=== PATIENT | female | born 1960 | race Caucasian/White ===

== ENCOUNTER 2020-01-10 16:15 | Outpatient (CLI) | payer OTHER | END 2020-01-10 16:20 | disposition home or self-care (01) | LOC: LAB 16:15 | PROVIDERS: ATTEND Physical Medicine & Rehabilitation | DX: Z20.828 Contact with and (suspected) exposure to other viral communicable diseases (principal); Z11.59 Encounter for screening for other viral diseases ==

== ENCOUNTER 2020-09-05 12:44 | Outpatient (CLI) | payer OTHER | END 2020-09-05 13:08 | disposition home or self-care (01) | LOC: MAMO-SONO 12:44 | DX: Z12.31 Encounter for screening mammogram for malignant neoplasm of breast (principal); N64.59 Other signs and symptoms in breast ==

== ENCOUNTER 2021-02-23 15:50 | Outpatient (CLI) | payer OTHER | END 2021-02-23 16:00 | disposition home or self-care (01) | LOC: PPH VACUNA 15:50 | PROVIDERS: ATTEND Emergency Medicine Pediatric Emergency Medicine | DX: Z23 Encounter for immunization (principal) ==

== ENCOUNTER → 2021-07-10 13:02 | Outpatient (CLI) | payer OTHER | END | disposition home or self-care (01) | LOC: LAB 13:02 | PROVIDERS: ATTEND Radiology Diagnostic Radiology | DX: R05.9 Cough, unspecified (principal) ==

== ENCOUNTER 2021-07-18 07:44 | Outpatient (CLI) | payer OTHER | END 2021-07-18 08:14 | disposition home or self-care (01) | LOC: TOM 07:44 | PROVIDERS: ATTEND General Practice | DX: R05.9 Cough, unspecified (principal) ==

== ENCOUNTER → 2021-07-27 11:05 | Outpatient (CLI) | payer OTHER | END | disposition home or self-care (01) | LOC: NUCLEAR 11:00 | PROVIDERS: ATTEND General Practice | DX: I74.2 Embolism and thrombosis of arteries of the upper extremities (principal) ==

== ENCOUNTER 2021-07-31 10:11 | Outpatient (CLI) | payer OTHER | END 2021-07-31 10:14 | disposition home or self-care (01) | LOC: NUCLEAR 10:11 | PROVIDERS: ATTEND General Practice | DX: I87.2 Venous insufficiency (chronic) (peripheral) (principal) ==

== ENCOUNTER 2021-08-13 12:26 | Outpatient (CLI) | payer OTHER | END 2021-08-13 12:39 | disposition home or self-care (01) | LOC: RAD 12:26 | PROVIDERS: ATTEND General Practice | DX: M25.511 Pain in right shoulder (principal) ==

== ENCOUNTER 2021-09-13 09:04 | Outpatient (CLI) | payer OTHER | END 2021-09-13 09:11 | disposition home or self-care (01) | LOC: SONOGRAMA 09:04 | PROVIDERS: ATTEND Pathology Anatomic Pathology & Clinical Pathology | DX: N63.31 Unspecified lump in axillary tail of the right breast (principal) ==

== ENCOUNTER 2021-10-04 13:02 | Outpatient (CLI) | payer OTHER | END 2021-10-04 13:09 | disposition home or self-care (01) | LOC: RAD 13:02 | PROVIDERS: ATTEND Orthopaedic Surgery | DX: R07.9 Chest pain, unspecified (principal) ==

== ENCOUNTER 2022-05-31 12:36 | Outpatient (CLI) | payer OTHER | END 2022-05-31 12:37 | disposition home or self-care (01) | LOC: NUCLEAR 12:36 | PROVIDERS: ATTEND Obstetrics & Gynecology | DX: M81.0 Age-related osteoporosis without current pathological fracture (principal) ==

== ENCOUNTER 2022-07-10 11:10 | Outpatient (CLI) | payer OTHER | END 2022-07-10 11:19 | disposition home or self-care (01) | LOC: MRI 11:10 | PROVIDERS: ATTEND General Practice | DX: M54.16 Radiculopathy, lumbar region (principal) | CPT/HCPCS: 72148 ==

== ENCOUNTER → 2023-07-22 | Outpatient (CLI) | payer OTHER | END | disposition home or self-care (01) | LOC: MAMO-SONO 13:01 | PROVIDERS: ATTEND Obstetrics & Gynecology | DX: N64.4 Mastodynia (principal) ==